=== PATIENT | female | born 1985 | race Caucasian/White ===

== ENCOUNTER 2016-05-18 10:16 | Emergency (ER) | payer MEDICAID, OTHER ==
--- NOTE | 2016-05-18 11:03 | UC ---
Complaint Female HPI - HPI Summary HPI Summary: 3-4 days of burning with urination, seems better today than last nigh did have some blood in urine yesterday - History Of Current Complaint Chief Complaint: UCGU Stated Complaint: URINARY COMPLAINT Time Seen by Provider: 05/18/16 10:53 Hx Obtained From: Patient Hx Last Menstrual Period: 04/18/16 ?: No Onset/Duration: Gradual Onset, Lasting Days - 5, Still Present - but seems a little better Timing: Constant Severity Initially: Mild Severity Currently: Mild Character: Burning Aggravating Factor(s): Urination Associated Signs And Symptoms: Positive: Negative - Allergies/Home Medications Allergies/Adverse Reactions: Allergies Allergy/AdvReac Type Severity Reaction Status Date / Time Penicillins Allergy Intermediate Rash Verified 01/04/14 11:35 Home Medications: Home Medications Norgestimate-Ethinyl Estradiol [Trinessa Lo 0.18/0.215/0.25 mg-25 Mcg] 1 tab PO DAILY 05/18/16 [History Confirmed 05/18/16] Phenazopyridine HCl [Azo Urinary Pain Relief] 95 mg PO Q8HR PRN 05/18/16 [ History Confirmed 05/18/16] PMH/Surg Hx/FS Hx/Imm Hx Previously Healthy: Yes - Surgical History Surgical History: None - Family History Known Family History: Positive: None Family History: no reported cardiovascular issues in family lineage - Social History Occupation: Employed Full-time Lives: With Family Alcohol Use: Occasionally Substance Use Type: None Smoking Status (MU): Never Smoked Tobacco - Immunization History Most Recent Influenza Vaccination: 12/15/13 Review of Systems Constitutional: Negative Skin: Negative Eyes: Negative ENT: Negative Respiratory: Negative Cardiovascular: Negative Gastrointestinal: Negative Genitourinary: Dysuria, Hematuria, Frequency, Urgency Motor: Negative Neurovascular: Negative Musculoskeletal: Negative Neurological: Negative Psychological: Negative All Other Systems Reviewed And Are Negative: Yes Physical Exam Triage Information Reviewed: Yes Appearance: Well-Appearing, No Pain Distress, Well-Nourished Vital Signs: Initial Vital Signs Temp 98.7 F 05/18/16 10:26 Pulse 78 05/18/16 10:26 Resp 16 05/18/16 10:26 BP 144/98 05/18/16 10:26 Pulse Ox 100 05/18/16 10:26 Vital Signs Reviewed: Yes Eye Exam: Normal Eyes: Positive: Conjunctiva Clear ENT Exam: Normal ENT: Positive: Normal ENT inspection, Hearing grossly normal. Negative: Trismus , Muffled/hoarse voice Dental Exam: Normal Neck exam: Normal Neck: Positive: Supple, Nontender Respiratory Exam: Normal Respiratory: Positive: Chest non-tender, No respiratory distress, No accessory muscle use Cardiovascular Exam: Normal Cardiovascular: Positive: RRR, Pulses Normal, Brisk Capillary Refill Abdominal Exam: Normal Abdomen Description: Positive: Nontender, No Organomegaly, Soft. Negative: CVA Tenderness (R), CVA Tenderness (L), McBurney's Point Tenderness Bowel Sounds: Positive: Present Musculoskeletal Exam: Normal Musculoskeletal: Positive: Strength Intact, ROM Intact, No Edema Neurological Exam: Normal Neurological: Positive: Alert, Muscle Tone Normal Psychological Exam: Normal Skin Exam: Normal Diagnostics - Laboratory Diagnostic Studies Completed/Ordered: u preg (-), ua 75 leuks, (-) nitrites Complaint Female Dx - Course Course Of Treatment: macrobid, azo, increase fluids, culture urine follow with pcp - Differential Dx/Diagnosis Differential Diagnosis/HQI/PQRI: , Sexually Transmitted Disease, Urinary Tract Infection Provider Diagnoses: UTI Discharge - Discharge Plan Condition: Stable Disposition: HOME Prescriptions: Nitrofurantoin Monohyd Macro [Macrobid] 100 mg PO BID #20 cap Patient Education Materials: Phenazopyridine (By mouth), Urinary Tract Infection in Women (ED) Referrals: Zacarias Arteaga [Primary Care Provider] - If Needed
[2016-05-18 11:20] VITALS: BP 150/95
== END 2016-05-18 11:22 | disposition home or self-care (01) ==
LOC: UCCORT 10:16
DX: N39.0 Urinary tract infection, site not specified (principal); R31.9 Hematuria, unspecified; Z88.0 Allergy status to penicillin; Z32.02 Encounter for pregnancy test, result negative
CPT/HCPCS: 81025; 87086; 99212; G0463

== ENCOUNTER 2017-12-17 15:56 | Emergency (ER) | payer BC, OTHER ==
[2017-12-17 16:19] VITALS: BP 156/99
--- NOTE | 2017-12-17 17:03 | UC ---
Psychiatric Complaint HPI - HPI Summary HPI Summary: 32-year-old woman comes in to the clinic today with a complaint of depression and anxiety. Patient has a psychiatric history of anxiety and depression and last week she was very pressed and she a suicidal gestures in the presence of her boyfriend. She threatened to cut herself with a knife and also take ibuprofen. She did not cut herself and she did not take any ibuprofen. She explained her jobs needed some time off and explained the circumstances. Her work has gotten in contact with her to try to help with counseling. At this time the patient feels greatly improved and wishes to go back to work. She's not feeling depressed at this time. She does have some mild anxiety. Her sleeping has improved. Her concentration really hasn't changed but she says not any worse than it was last week. She denies being suicidal or homicidal. - History Of Current Complaint Chief Complaint: UCGU Stated Complaint: PERSONAL Time Seen by Provider: 12/17/17 16:39 Hx Last Menstrual Period: bcp - Allergies/Home Medications Allergies/Adverse Reactions: Allergies Allergy/AdvReac Type Severity Reaction Status Date / Time Penicillins Allergy Intermediate Rash Verified 12/17/17 16:19 PMH/Surg Hx/FS Hx/Imm Hx Psychological History: Anxiety, Depression - Surgical History Surgical History: None - Family History Known Family History: Positive: None, Other - Family history of psychiatric issues Family History: no reported cardiovascular issues in family lineage - Social History Alcohol Use: Occasionally Substance Use Type: None Smoking Status (MU): Current Some Day Smoker Type: Cigarettes - Immunization History Most Recent Influenza Vaccination: 12/15/13 Review of Systems Constitutional: Negative Skin: Negative Eyes: Negative ENT: Negative Respiratory: Negative Cardiovascular: Negative Gastrointestinal: Negative Motor: Negative Neurovascular: Negative Musculoskeletal: Negative Neurological: Negative Psychological: Anxious Is Patient Immunocompromised?: No All Other Systems Reviewed And Are Negative: Yes Physical Exam Triage Information Reviewed: Yes Appearance: Well-Appearing, No Pain Distress, Well-Nourished Vital Signs: Initial Vital Signs Temp 99.3 F 12/17/17 16:10 Pulse 104 12/17/17 16:10 Resp 18 12/17/17 16:10 BP 156/99 12/17/17 16:10 Pulse Ox 100 12/17/17 16:10 Vital Signs Reviewed: Yes Eye Exam: Normal Eyes: Positive: Conjunctiva Clear ENT Exam: Normal Neck exam: Normal Neck: Positive: Supple Respiratory Exam: Normal Respiratory: Positive: Lungs clear, Normal breath sounds, No respiratory distress Cardiovascular Exam: Normal Cardiovascular: Positive: RRR Musculoskeletal Exam: Normal Musculoskeletal: Positive: Strength Intact, ROM Intact Neurological Exam: Normal Neurological: Positive: Alert Psychological Exam: Normal Psychological: Positive: Age Appropriate Behavior Skin Exam: Normal Psych Complaint Course/Dx - Course Course Of Treatment: Patient is not suicidal at this time. She lives with her boyfriend who gives her good support. The plan is to give her a referral to [facility]. I will write to return to work tomorrow. She promised me that if she has any further issues any concerns about suicidality she will go to the emergency department. - Differential Dx/Diagnosis Provider Diagnoses: ANXIETY Discharge - Sign-Out/Discharge Documenting (check all that apply): Patient Departure All imaging exams completed and their final reports reviewed: No Studies - Discharge Plan Condition: Stable Disposition: HOME Patient Education Materials: Anxiety (ED) Referrals: Filiberto GALLAGHER,Zacarias Sorensen [Primary Care Provider] - [facility] [Outside] Additional Instructions: FOLLOW UP WITH [facility]. GO TO THE EMERGENCY DEPARTMENT FOR ANY WORSENING OF YOUR CONDITION; ANXIETY, DEPRESSION, YOU ARE CONSIDERING HURTING YOURSELF OR QUESTIONS OR CONCERNS. - Billing Disposition and Condition Condition: STABLE Disposition: Home
== END 2017-12-17 17:15 | disposition home or self-care (01) ==
LOC: UCEAST 15:56
DX: F41.9 Anxiety disorder, unspecified (principal); F32.9 Major depressive disorder, single episode, unspecified; Z88.0 Allergy status to penicillin; Z72.0 Tobacco use
CPT/HCPCS: 99211; G0463

== ENCOUNTER 2018-09-16 17:37 | Emergency (ER) | payer BC ==
--- OUTSIDE RECORDS SUMMARY | 2018-09-16 17:45 | XMS REPORT | Continuity of Care Document ---
:1985 External Reference #:[id number] Author Name Candi Herrera NP Address [address] [place] [address] Care Team Providers Name Role Phone Becki Franz M.D. Care Team Information Manager Emergency Department Unavailable Becki Franz M.D. Primary Care Physician Unavailable Payers Date Identification Numbers Payment Provider Subscriber Effective: 2017 Policy Number: [id number] /BS Of [facility] June Thiago PayID: [id number] [address] [address] [place] [address] Problems Active Problems Provider Date Essential hypertension Becki Franz M.D. Onset: 04/30/2018 Recurrent major depressive episodes Becki Franz M.D. Onset: 04/11/2018 Family History Date Family Member(s) Observation Comments Father Parent Child Estrangement Father Hypertension Mother Borderline Personality Disorder Mother Hypertension Mother Fibromyalgia Maternal Uncles Schizophrenia Social History Type Date Description Comments Sex Unknown Lives With Boyfriend Diet Healthy, Well Balanced Pets 1 dog Occupation Nurse Tobacco Use Start: 03/19/16 Patient is a current mainly social 1x cigarette smoker, week smokes some days ETOH Use Social Alcohol Recreational Drug Use Marijuana Tobacco Use Start: Unknown Patient is a current smoker, smokes some days Smoking Status Reviewed: 08/26/18 Patient is a current smoker, smokes some days Exercise Type/Frequency Exercises sporadically Allergies, Adverse Reactions, Alerts Active Allergies Reaction Severity Comments Date Penicillin Hives 04/11/2018 Medications Active Medications SIG Qnty Indications Ordering Provider Date Xanax take 1/2 - 1 up 30tabs F41.9 Candi Corbett 08/13/2018 0.25mg Tablets to twice a day as MALLORY Herrera needed for anxiety Sertraline HCL 1 by mouth every 30tabs F33.9 [facility], 05/30/2018 100mg day M.D. Tablets Propranolol HCL 1-3 tabs bid prn 90tabs I10 Candi Chelle 05/30/2018 20mg palpitations/anxi Herrera, [employer] Tablets ety Mary 1 by mouth every 28tabs Candi Chelle 04/24/2018 0.35mg Tablets day Herrera, [employer] Vitamin B12 2 by mouth every Unknown 1000mcg day Tablets ER History Medications Amlodipine Besylate 1 by mouth every 30tabs I10 [facility], 05/30/2018 - day M.D. 06/24/2018 10mg Tablets Amlodipine Besylate 2 by mouth every 30tabs I10 [facility], 04/30/2018 - day M.D. 05/30/2018 5mg Tablets Automatic Blood take blood 1units I10 [facility], 04/30/2018 - Pressure Monitor pressure daily M.D. 08/13/2018 Device Valsartan 1 tab by mouth 30tabs R03.0 [facility], 04/30/2018 - 160mg every day M.D. 06/24/2018 Tablets Valsartan 1.5 tab by mouth 45tabs R03.0 [facility], 04/12/2018 - 80mg every day M.D. 04/30/2018 Tablets Sertraline HCL 1 by mouth every 30tabs F33.9 [facility], 04/11/2018 - 50mg day M.D. 05/30/2018 Tablets Doxycycline 1 tab twice a day 14caps J01.90 [facility], 04/11/2018 - Monohydrate x7 days M.D. 04/30/2018 100mg Capsules [id number] take 1 tablet Unknown - orally every day 04/24/2018 0.18/0.215/0.25 mg-25 mcg Tablets Vital Signs Date Vital Result Comment 08/13/2018 1:11pm BP Systolic 122 mmHg BP Diastolic 82 mmHg Heart Rate 80 /min Body Temperature 99.5 F 07/04/2018 10:37am BP Systolic 128 mmHg BP Diastolic 98 mmHg Heart Rate 76 /min Body Temperature 98.4 F 06/24/2018 5:38pm BP Systolic 126 mmHg BP Diastolic 86 mmHg Heart Rate 86 /min Body Temperature 98.8 F Respiratory Rate 16 /min 05/30/2018 1:25pm BP Systolic 138 mmHg BP Diastolic 80 mmHg Heart Rate 140 /min Respiratory Rate 16 /min 05/09/2018 11:52am BP Systolic 128 mmHg BP Diastolic 88 mmHg BP Systolic Recheck 140 mmHg BP Diastolic Recheck 90 mmHg Heart Rate 80 /min Body Temperature 99.0 F Respiratory Rate 16 /min Height 65 inches 5'5" 04/30/2018 10:38am BP Systolic 130 mmHg BP Diastolic 100 mmHg BP Systolic Recheck 134 mmHg BP Diastolic Recheck 100 mmHg Heart Rate 78 /min Body Temperature 97.9 F 04/12/2018 1:01pm BP Systolic 174 mmHg BP Diastolic 104 mmHg Heart Rate 80 /min Body Temperature 97.7 F Respiratory Rate 12 /min 04/11/2018 10:21am BP Systolic 144 mmHg BP Diastolic 100 mmHg BP Systolic Recheck 160 mmHg BP Diastolic Recheck 110 mmHg Heart Rate 65 /min Body Temperature 98.1 F Respiratory Rate 12 /min Height 65 inches 5'5" Weight 142.00 lb BMI (Body Mass Index) 23.6 kg/m2 Results Test Date Facility Test Result H/L Range Note Ua - Micro 07/04/2018 [facility] Medicine Appearance slightly cloudy # (Fma) (607)- - Color orange # Glucose, Urine (Fma/CMC/CTX) neg Bilirubin neg Ketones trace # SP Grav >=1.030 Blood neg PH 5.5 Protein neg Urobil 0.2 Nitrite neg Leukocytes (Fma/CMC/Centrex) trace # Hyaline - /Lpf Granular - /Lpf WBC (Fma,Centrex) 8-10 # RBC 0-1 # Mucus (Fma/CBC/Centrex) mod amt /Lpf # Epith few /Lpf # Bacteria 1+ /Hpf # Amorphous (Fma/CMC/Centrex) - /Lpf Crystals, Fluid (Fma/CMC/CTX) - Z#Comments - Urine Culture And 07/04/2018 [facility] Urine Culture SEE RESULT 1 Sensitivities BELOW Laboratory test 06/25/2018 [facility] Folate (Folic 5.4 ng/mL >3.0 2, [address] Acid), [place] [address] (607)- - Laboratory test 06/25/2018 [facility](a) Serum Iron 47 g/dL Low 60-150 4 finding Ferritin 61 ng/mL 6-115 Vitamin B-12 436 pg/mL 230-1050 CBC Electronic Fma 06/25/2018 [facility]) WBC 4.0 x10^3/UL 4.0- 10.0 RBC 4.07 x10^6/UL 3.93-6.00 HGB 13.2 g/dL 12.0-17.0 HCT 40 % 35-50 MCV 98.0 fL High 80.0-95.0 MCH 32.4 pg High 25.6-32.2 MCHC 33.1 g/dL 32.2-36.0 RDW-CV 13.2 % 11.6-14.4 PLT 458 x10^3/UL High 163-400 MPV 10.0 fL 9.4-12.4 Boby# 1.37 x10^3/UL Low 1.56-6.13 Lymph# 1.99 x10^3/UL 1.18-3.74 [place]# 0.38 x10^3/UL 0.24-0.82 Eos # 0.2 x10^3/UL 0.0-0.5 Baso # 0.03 x10^3/UL 0.01-0.08 Boby% 34.6 % 34.0-70.0 Lymph % 50.4 % 20.0-52.0 [place]% 9.6 % 5.0-12.0 Eos% 4.6 % 0.7-7.0 Baso% 0.8 % 0.1-1.2 Comprehensive Metabolic 04/25/2018 [facility]) Sodium 135 mEq/L 134-149 Prof Potassium 4.6 mEq/L 3.6-5.5 Chloride 98 mEq/L 94-112 Carbon Dioxide 24 mEq/L 21-32 Glucose 84 mg/dL 70-105 BUN 10 mg/dL 6-26 Creatinine 0.9 mg/dL 0.6-1.4 BUN/Creat Ratio 11.1 CALC 8.0-36.0 Calcium 9.2 mg/dL 8.6-10.2 Total Protein 7.2 g/dL 6.4-8.3 Albumin 4.7 g/dL 3.8-5.5 Globulin 2.5 g/dL 2.0-4.8 A/G Ratio 1.9 CALC 0.6-2.3 Alk. Phosphatase 50 U/L 30-110 Alt (SGPT) 18 U/L 7-35 Ast (Sgot) 17 U/L 5-34 Total Bilirubin 0.5 mg/dL 0.2-1.3 GFR Non- >60 ml/min/1.73m^ >=60 GFR >60 ml/min/1.73m^ >=60 Lipid Profile 04/25/2018 [facility](a) Cholesterol 166 mg/dL 120- 200 Triglycerides 46 mg/dL 30-200 HDL Cholesterol 79 mg/dL 30-85 LDL (Calculated) 78 CALC 0-129 VLDL Cholesterol 9 mg/dL 0-50 HDL Risk Factor 2.1 CALC 0.0-4.4 CBC Electronic Fma 04/25/2018 [facility] K[facility]son([facility]) WBC 4.6 x10^3/UL 4.0- 10.0 RBC 4.28 x10^6/UL 3.93-6.00 HGB 13.9 g/dL 12.0-17.0 HCT 42 % 35-50 MCV 97.0 fL High 80.0-95.0 MCH 32.5 pg High 25.6-32.2 MCHC 33.5 g/dL 32.2-36.0 RDW-CV 12.2 % 11.6-14.4 PLT 574 x10^3/UL High 163-400 5 MPV 10.0 fL 9.4-12.4 Boby# 2.44 x10^3/UL 1.56-6.13 Lymph# 1.55 x10^3/UL 1.18-3.74 [place]# 0.35 x10^3/UL 0.24-0.82 Eos # 0.2 x10^3/UL 0.0-0.5 Baso # 0.05 x10^3/UL 0.01-0.08 Boby% 52.8 % 34.0-70.0 Lymph % 33.5 % 20.0-52.0 [place]% 7.6 % 5.0-12.0 Eos% 5.0 % 0.7-7.0 Baso% 1.1 % 0.1-1.2 Laboratory test finding 04/25/2018 Dar[facility] Knutson([facility]) TSH 3.31 mIU/L 0.50-6.00 Free T4 0.85 ng/dL 0.75-1.54 1 SEE RESULT BELOW Name: JULIO CESAR NORTH : [address]: Becki Franz MD Acct: [id number] Unit: [id number] AGE: 32 Location: [facility] Re07/04/18 SEX: F Status: REG REF SPEC: [id number] MATT: 07/04/181222 SUBM DR: Becki Franz MD REQ: [id number] RECD: 07/04/18 STATUS: COMP _ SOURCE: URINE SPDESC: ORDERED: Urine Culture COMMENTS: [id number] ramirez urine top Urine Source: Random Procedure Result Reported Site Urine Culture Final 07/05/18- 1604 ML No Growth (<1,000 CFU/mL) * ML - Main Lab . END OF REPORT DEPARTMENT OF PATHOLOGY, [address] [place] [address] Zacarias Parks M.D. Director [facility] # [id number] 2 1 sst 3 A serum folate concentration of less than 3.1 ng/mL is considered to represent clinical deficiency. 4 RESULTS VERIFIED BY REPEAT ANALYSIS 5 RESULTS VERIFIED BY REPEAT ANALYSIS Procedures Date Code Description Status 05/30/2018 42729 Electrocardiogram Complete Completed Encounters Type Date Location Provider Dx Diagnosis Office Visit 08/13/2018 Main Office Candi Herrera, I10 Essential ( primary) 1:30p [employer] hypertension F41.9 Anxiety disorder, unspecified Office Visit 07/04/2018 10:40a Main Office Becki Franz, R80.0 Isolated proteinuria M.D. I10 Essential (primary) hypertension R20.0 Anesthesia of skin D51.8 Other vitamin B12 deficiency anemias Office Visit 06/24/2018 5:40p Main Office Becki Franz I10 Essential ( primary) M.D. hypertension R00.2 Palpitations F33.9 Major depressive disorder, recurrent, unspecified Office Visit 05/30/2018 12:50p Main Office Becki Franz M.D. R00.2 Palpitations I10 Essential (primary) hypertension F33.9 Major depressive disorder, recurrent, unspecified Office Visit 05/09/2018 12:00p Main Office Becki Franz, Z00.00 Encntr for general M.D. adult medical exam w/o abnormal findings I10 Essential (primary) hypertension F33.9 Major depressive disorder, recurrent, unspecified M25.512 Pain in left shoulder Office Visit 04/30/2018 11:00a [facility] Becki Franz, I10 Essential (primary) M.D. hypertension F33.9 Major depressive disorder, recurrent, unspecified Z30.40 Encounter for surveillance of contraceptives, unspecified D47.3 Essential (hemorrhagic) thrombocythemia Office Visit 04/12/2018 [facility] Radha Yu R03.0 Elevated 1:15p Office MALLORY Arreguin blood-pressure reading, w/o diagnosis of htn Office Visit 04/11/2018 Main Office Becki Franz, J01.90 Acute sinusitis, 10:20a M.D. unspecified F33.9 Major depressive disorder, recurrent, unspecified R03.0 Elevated blood-pressure reading, w/o diagnosis of htn Plan of Treatment Future Appointment(s):12/24/2018 1:00 pm - Becki Franz M.D. at [facility] Zlgqop5408/26/2018 - Candi Herrera, NPH72.02 Central perforation of tympanic membrane, left earComments:this may take up to 6-8 weeks to resolve do not submerge head in water patient instructed to call back if condition fails to improve or worsens - if worsening ENT WahxtdfvN84.9 Problem related to social environment, unspecifiedAllComments:Medication Management Patient Understands medications he 's taking? Yes No Are there Barriers to Adherence? Yes No Has the patient been asked about herbal supplements and therapies, andOTC meds? Yes No Care Plan1. Patient has been queried about patient's goals/preferences and functional/lifestyle goals at relevant visits. If relevant, describe: na2. Treatment goals as explained to the patient: above3. Are there barriers to meeting treatment goals? Yes No If Yes, please describe: 4. Self-Management goals as described to the patient: Yes NoAs always, we strongly encourage a healthy diet and making physical activity a part of your every day life. If you have questions about how or where to start, please contact the office.
[2018-09-16 17:54] VITALS: BP 156/101
[2018-09-16] MEDS ORDERED: Ketorolac INJ* 30 MG/ML 1 ML VIAL IM ONE (18:24)
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
== END 2018-09-16 19:21 | disposition home or self-care (01) ==
LOC: UCEAST 17:37
DX: S16.1XXA Strain of muscle, fascia and tendon at neck level, initial encounter (principal); M54.12 Radiculopathy, cervical region; R20.2 Paresthesia of skin; F17.210 Nicotine dependence, cigarettes, uncomplicated; Z88.0 Allergy status to penicillin; X58.XXXA Exposure to other specified factors, initial encounter; Y92.9 Unspecified place or not applicable
CPT/HCPCS: 72125; 96372; 99212; G0463; J1885

== ENCOUNTER 2018-12-22 13:22 | Emergency (ER) | payer BC ==
[2018-12-22 13:32] VITALS: BP 137/103
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
== END 2018-12-22 15:51 | disposition home or self-care (01) ==
LOC: UCEAST 13:22
DX: S89.91XA Unspecified injury of right lower leg, initial encounter (principal); S09.91XA Unspecified injury of ear, initial encounter; I10 Essential (primary) hypertension; F17.210 Nicotine dependence, cigarettes, uncomplicated; Z88.0 Allergy status to penicillin; Y04.2XXA Assault by strike against or bumped into by another person, initial encounter; Y92.9 Unspecified place or not applicable
CPT/HCPCS: 99212; G0463

== ENCOUNTER 2019-10-19 14:32 | Inpatient (IN) ==
[2019-10-19 15:27] LABS: Urine Appearance Cloudy; Urine Bilirubin Negative (Negative); Urine Blood Negative (Negative); Urine Color Yellow; Urine Glucose Negative (Negative); Urine Ketones 2+ (Negative); Urine Nitrite Negative (Negative); Urine Protein Negative (Negative); Urine Specific Gravity 1.023 (1.010-1.030); Urine Urobilinogen Negative (Negative)
[2019-10-19 15:33] LABS: ABS Lymphocytes 1.2 10^3/ul (1.0-4.8); ABS Monocytes 0.5 10^3/ul (0-0.8); Eosinophil % 0.3 %; Hematocrit 38 % (35-47); Lymphocyte % 17.3 %; Mean Corpuscular HGB Conc 34 g/dL (31-36); Mean Corpuscular Hemoglobin 34 pg (27-31); Mean Corpuscular Volume 99 fL (80-97); Mean Platelet Volume 8.5 fL (7.4-10.4); Platelet Count 315 10^3/uL (150-450); Red Blood Count 3.85 10^6 /uL (3.70-4.87); Red Cell Distribution Width 13 % (10-15); White Blood Count 6.8 10^3/uL (3.5-10.8)
[2019-10-19 15:50] LABS: ALT 20 U/L (7-52); AST 16 U/L (13-39); Albumin 4.3 g/dL (3.2-5.2); Albumin/Globulin Ratio 1.7 (1-3); Alkaline Phosphatase 55 U/L (34-104); Anion Gap 8 mmol/L (2-11); BUN/Creatinine Ratio 12.8 (8-20); Blood Urea Nitrogen 10 mg/dL (6-24); CO2 Carbon Dioxide 20 mmol/L (22-32); Calcium 9.1 mg/dL (8.6-10.3); Chloride 107 mmol/L (101-111); EGFR African American 102.3 (>60); EGFR Non-African American 84.5 (>60); Globulin 2.5 g/dL (2-4); Glucose 77 mg/dL (70-100); Potassium 3.5 mmol/L (3.5-5.0); Sodium 135 mmol/L (135-145); Total Protein 6.8 g/dL (6.4-8.9)
[2019-10-19 15:54] LABS: Urine Benzodiazepine Screen None Detected (None Detect); Urine Cannabinoids Screen Presumptive Positive (None Detect); Urine Opiates Screen None Detected (None Detect)
[2019-10-19 15:57] LABS: HCG Pregnancy < 0.60 mIU/mL
[2019-10-19 16:04] LABS: Acetaminophen < 15 mcg/mL; Alcohol, S < 10 mg/dL (<10); Salicylate < 2.50 mg/dL (<30)
[2019-10-20] MEDS ORDERED: Al Hydrox/Mg Hydrox/Simet LIQ 30 ML UDC PO PRN (02:57)
[2019-10-20] MEDS ORDERED: Nicotine GUM 2MG FRUIT FLAVOR PO PRN (03:00)
[2019-10-20] MEDS: Vitamin THERAPEUTIC TAB PO SCH (08:50)
[2019-10-20] MEDS: Nicotine PATCH 21 MG/24 HR PATCH TRANSDERM SCH (08:50)
[2019-10-21] MEDS: Nicotine PATCH 21 MG/24 HR PATCH TRANSDERM SCH (08:07)
[2019-10-21] MEDS: Vitamin THERAPEUTIC TAB PO SCH (08:08)
[2019-10-21 08:31] LABS: HDL Cholesterol 55.5 mg/dL
[2019-10-22] MEDS: Nicotine PATCH 21 MG/24 HR PATCH TRANSDERM SCH (08:56)
[2019-10-22] MEDS: Vitamin THERAPEUTIC TAB PO SCH (08:56)
[2019-10-23] MEDS: Vitamin THERAPEUTIC TAB PO SCH (08:45)
[2019-10-23] MEDS: Nicotine PATCH 21 MG/24 HR PATCH TRANSDERM SCH (08:46)
[2019-10-23 09:16] VITALS: BP 125/95
== END 2019-10-23 16:31 | disposition home or self-care (01) | DRG 754 ==
LOC: ED 14:32 → BSU 10-20 02:20
PROVIDERS: ADMIT Psychiatry & Neurology Psychiatry; ATTEND Psychiatry & Neurology Psychiatry